=== PATIENT | female | born 1930 | race Caucasian/White ===

== ENCOUNTER → 2016-04-15 | Outpatient (CLI) | payer MEDICARE, OTHER ==
[~2016-04-15] MED LIST: AMIT10 PO; ASPI81 PO; BENI40TA30 PO; BENZ100 PO; CALC600T34 PO; CARV12.52 PO; CENTTAB9 PO; CETI10 PO; DENO60P SC; DEXI60CA3 PO; EPIP0.3I IM; FEXO180 PO; LEXA10TA PO; POLY10O EACH EYE; POTA20IN3 PO; RANI150 PO; ZITH250T PO
[2016-04-15 12:24] LABS: MICRO ALBUMIN RANDOM URINE RAW 38.3 MG/L (0.0-30.0)
[2016-04-15 12:48] LABS: FREE T3 2.77 PG/ML (2.18-3.98); FREE T4 0.93 NG/DL (0.76-1.46); INDIRECT BILIRUBIN 0.3 MG/DL (0.0-0.8); TOTAL BILIRUBIN ADULT 0.4 MG/DL (0.2-1.0)
[2016-04-19 19:56] LABS: ISLET CELL ANTIBODY SCREEN NEGATIVE (NEGATIVE); ISLET CELL ANTIBODY TITER ND JDF (())
[2016-04-20 13:23] LABS: INTACT PRO INSULIN 33 pmol/L (3-20)
[2016-04-21 03:51] LABS: INSULIN AUTO ANTIBODIES LESS THAN 0.4 U/mL (<0.4)
== END ==
LOC: PLAB 08:31
PROVIDERS: ATTEND Internal Medicine Endocrinology, Diabetes & Metabolism
DX: E11.649 Type 2 diabetes mellitus with hypoglycemia without coma (principal); E11.65 Type 2 diabetes mellitus with hyperglycemia; K76.0 Fatty (change of) liver, not elsewhere classified
CPT/HCPCS: 36415; 80076; 82043; 82306; 82533; 82607; 82747; 83519; 83525; 83970; 84206; 84439; 84443; 84481; 84681; 86337; 86341

== ENCOUNTER → 2016-05-26 | Outpatient (CLI) | payer MEDICARE ==
[2016-05-26 16:04] LABS: MEAN CELL VOLUME 85.9 FL (80.0-100.0); MEAN CORPUSCULAR HEMOGLOBIN 28.7 PG (27.0-34.0); MEAN CORPUSCULAR HGB CONC 33.4 % (32.0-36.0); PLATELET COUNT 205 TH/MM3 (150-450); REVIEW FLAG FINAL; WHITE BLOOD COUNT 6.1 TH/MM3 (4.0-11.0)
[2016-05-26 16:36] LABS: ALT (GPT) 29 U/L (10-53); ANION GAP 8 MEQ/L (5-15); AST (GOT) 21 U/L (15-37); BICARBONATE 29.8 MEQ/L (21.0-32.0); BLOOD UREA NITROGEN 23 MG/DL (7-18); CHLORIDE 100 MEQ/L (98-107); GLOMERULAR FILTRATION RATE 75 ML/MIN (>89); POTASSIUM 4.1 MEQ/L (3.5-5.1); SODIUM (NA) 138 MEQ/L (136-145)
[2016-05-26 16:39] LABS: ALKALINE PHOSPHATASE 62 U/L (45-117); TOTAL BILIRUBIN ADULT 0.4 MG/DL (0.2-1.0)
== END ==
LOC: PLAB 11:54
PROVIDERS: ATTEND Internal Medicine Rheumatology
DX: M81.8 Other osteoporosis without current pathological fracture (principal)
CPT/HCPCS: 36415; 80053; 85027

== ENCOUNTER → 2016-12-20 | Outpatient (CLI) | payer MEDICARE ==
[2016-12-20 09:53] LABS: ANION GAP 9 MEQ/L (5-15); AST (GOT) 18 U/L (15-37); BICARBONATE 26.2 MEQ/L (21.0-32.0); BLOOD UREA NITROGEN 20 MG/DL (7-18); CHLORIDE 103 MEQ/L (98-107); GLOMERULAR FILTRATION RATE 91 ML/MIN (>89); GLUCOSE,FASTING 108 MG/DL (74-99); POTASSIUM 3.8 MEQ/L (3.5-5.1); SODIUM (NA) 138 MEQ/L (136-145)
[2016-12-20 09:57] LABS: ALKALINE PHOSPHATASE 71 U/L (45-117); ALT (GPT) 27 U/L (10-53); MAGNESIUM 2.2 MG/DL (1.5-2.5); TOTAL BILIRUBIN ADULT 0.4 MG/DL (0.2-1.0); URIC ACID 6.6 MG/DL (2.6-6.0)
[2016-12-20 10:24] LABS: FREE T4 0.92 NG/DL (0.76-1.46)
[2016-12-20 16:21] LABS: MICRO ALBUMIN RANDOM URINE RAW 18.7 MG/L (0.0-30.0)
== END ==
LOC: PLAB 07:18
PROVIDERS: ATTEND Internal Medicine Rheumatology
DX: M81.0 Age-related osteoporosis without current pathological fracture (principal); E16.2 Hypoglycemia, unspecified; I70.209 Unspecified atherosclerosis of native arteries of extremities, unspecified extremity
CPT/HCPCS: 36415; 80053; 82043; 82306; 82533; 82607; 82747; 83525; 83735; 83970; 84439; 84443; 84550; 86038

== ENCOUNTER → 2017-04-20 | Outpatient (CLI) | payer MEDICARE ==
[2017-04-20 16:26] LABS: AUTOMATED NEUTROPHIL # 5.6 TH/MM3 (1.8-7.7); BASOPHIL # 0.1 TH/MM3 (0-0.2); EOSINOPHIL # 0.2 TH/MM3 (0-0.4); EOSINOPHIL % 2.9 % (0.0-4.0); HEMATOCRIT 46.7 % (35.0-46.0); HEMOGLOBIN 15.6 GM/DL (11.6-15.3); LYMPH % 15.6 % (9.0-44.0); LYMPHOCYTE # 1.2 TH/MM3 (1.0-4.8); MEAN CELL VOLUME 87.2 FL (80.0-100.0); MEAN CORPUSCULAR HEMOGLOBIN 29.2 PG (27.0-34.0); MEAN CORPUSCULAR HGB CONC 33.5 % (32.0-36.0); MEAN PLATELET VOLUME 9.8 FL (7.0-11.0); MONO % 8.1 % (0.0-8.0); MONOCYTE # 0.6 TH/MM3 (0-0.9); NEUT % 72.4 % (16.0-70.0); PLATELET COUNT 239 TH/MM3 (150-450); RED BLOOD COUNT 5.35 MIL/MM3 (4.00-5.30); RED CELL DISTRIBUTION WIDTH 13.9 % (11.6-17.2); WHITE BLOOD COUNT 7.7 TH/MM3 (4.0-11.0)
[2017-04-20 16:34] LABS: ALBUMIN 3.5 GM/DL (3.4-5.0); AST (GOT) 21 U/L (15-37); BICARBONATE 25.5 MEQ/L (21.0-32.0); BLOOD UREA NITROGEN 29 MG/DL (7-18); CALCIUM 9.1 MG/DL (8.5-10.1); CHLORIDE 102 MEQ/L (98-107); CREATININE 0.69 MG/DL (0.50-1.00); GLOMERULAR FILTRATION RATE 81 ML/MIN (>89); GLUCOSE,FASTING 106 MG/DL (74-99); SODIUM (NA) 135 MEQ/L (136-145)
[2017-04-20 16:35] LABS: ALT (GPT) 32 U/L (10-53); CHOLESTEROL 121 MG/DL (120-200); DIRECT BILIRUBIN ADULT 0.1 MG/DL (0.0-0.2); TRIGLYCERIDES 113 MG/DL (42-150)
[2017-04-20 16:38] LABS: ALKALINE PHOSPHATASE 62 U/L (45-117); CHOLESTEROL/ HDL RATIO 3.41 RATIO; HDL CHOLESTEROL 35.4 MG/DL (40.0-60.0); LDL CHOLESTEROL 63 MG/DL (0-99); TOTAL BILIRUBIN ADULT 0.4 MG/DL (0.2-1.0); TOTAL PROTEIN 7.4 GM/DL (6.4-8.2)
[2017-04-20 17:24] LABS: BASOPHILS 2 % (0-2); CORRECTED NUCLEATED RBC 1 /100 WBC (0-0); LYMPHOCYTES 9 % (9-44); MONOCYTES 9 % (0-8); NEUTROPHIL # MANUAL DIFF 5.9 TH/MM3 (1.8-7.7); NUCLEATED RED BLOOD CELL 1 (0-0); POLYS (SEG NEUTROPHILS) 77 % (16-70)
[2017-04-20 17:25] LABS: TEARDROP RBCS 2+ (NORMAL); TOXIC GRANULATION 1+ (NORMAL)
[2017-04-21 22:03] LABS: ALB/GLOB RATIO (SPE) 1.44 (1.39-2.23)
== END ==
LOC: PLAB 13:20
PROVIDERS: ATTEND Internal Medicine Endocrinology, Diabetes & Metabolism
DX: I10 Essential (primary) hypertension (principal); E16.1 Other hypoglycemia; E21.3 Hyperparathyroidism, unspecified; Z13.228 Encounter for screening for other metabolic disorders
CPT/HCPCS: 36415; 80053; 80061; 82248; 82306; 82330; 84080; 84165; 85007; 85027

== ENCOUNTER → 2017-07-04 | Outpatient (CLI) | payer MEDICARE ==
[2017-07-04 14:35] LABS: ALKALINE PHOSPHATASE 68 U/L (45-117); ALT (GPT) 23 U/L (10-53); TOTAL BILIRUBIN ADULT 0.4 MG/DL (0.2-1.0); TOTAL PROTEIN 7.4 GM/DL (6.4-8.2)
[2017-07-04 14:37] LABS: ALBUMIN 3.5 GM/DL (3.4-5.0); AST (GOT) 24 U/L (15-37); BICARBONATE 29.3 MEQ/L (21.0-32.0); BLOOD UREA NITROGEN 21 MG/DL (7-18); CALCIUM 9.2 MG/DL (8.5-10.1); CHLORIDE 104 MEQ/L (98-107); CREATININE 0.61 MG/DL (0.50-1.00); GLOMERULAR FILTRATION RATE 93 ML/MIN (>89); GLUCOSE,RANDOM 90 MG/DL (74-106); SODIUM (NA) 140 MEQ/L (136-145)
== END ==
LOC: PLAB 11:51
PROVIDERS: ATTEND Internal Medicine Rheumatology
DX: M81.0 Age-related osteoporosis without current pathological fracture (principal)
CPT/HCPCS: 36415; 80053

== ENCOUNTER → 2017-08-08 | Outpatient (CLI) | payer MEDICARE ==
[2017-08-08 17:27] LABS: AUTOMATED NEUTROPHIL # 6.4 TH/MM3 (1.8-7.7); BASOPHIL # 0.1 TH/MM3 (0-0.2); EOSINOPHIL # 0.3 TH/MM3 (0-0.4); EOSINOPHIL % 3.5 % (0.0-4.0); HEMATOCRIT 46.6 % (35.0-46.0); HEMO FLAGS DIFF FINAL; HEMOGLOBIN 15.5 GM/DL (11.6-15.3); LYMPH % 15.7 % (9.0-44.0); LYMPHOCYTE # 1.4 TH/MM3 (1.0-4.8); MEAN CELL VOLUME 85.6 FL (80.0-100.0); MEAN CORPUSCULAR HEMOGLOBIN 28.6 PG (27.0-34.0); MEAN CORPUSCULAR HGB CONC 33.3 % (32.0-36.0); MEAN PLATELET VOLUME 9.8 FL (7.0-11.0); MONO % 5.9 % (0.0-8.0); MONOCYTE # 0.5 TH/MM3 (0-0.9); NEUT % 73.9 % (16.0-70.0); PLATELET COUNT 212 TH/MM3 (150-450); RED BLOOD COUNT 5.44 MIL/MM3 (4.00-5.30); RED CELL DISTRIBUTION WIDTH 14.5 % (11.6-17.2); WHITE BLOOD COUNT 8.7 TH/MM3 (4.0-11.0)
[2017-08-08 17:35] LABS: IRON (FE) 55 MCG/DL (50-170)
[2017-08-08 17:38] LABS: FERRITIN 13 NG/ML (8-252)
[2017-08-08 17:38] LABS: % SATURATION IRON PROFILE 15.1 % (20-50); TOTAL IRON BINDING CAPACITY 365 MCG/DL (250-450); TRANSFERRIN IRON PROFILE 261 MG/DL (200-360)
== END ==
LOC: PLAB 10:43
DX: E34.9 Endocrine disorder, unspecified (principal); E23.6 Other disorders of pituitary gland
CPT/HCPCS: 36415; 82728; 83540; 83550; 85025